=== PATIENT | female | born 1975 | race Native Hawaiian/Other Pacific Islander ===

== ENCOUNTER 2017-01-10 18:56 | Emergency (ER) | payer OTHER ==
[~2017-01-10] VITALS: Ht 175.3 cm; Wt 86.2 kg
[2017-01-10 20:28] LABS: PLATELET COUNT 226 K/uL (152-353)
== END 2017-01-10 21:27 | disposition home or self-care (01) ==
LOC: ED 18:56
DX: R51 Headache (principal); G93.2 Benign intracranial hypertension
CPT/HCPCS: 36415; 85027; 96372; 99283; J1885

== ENCOUNTER 2017-02-03 18:50 | Emergency (ER) | payer OTHER ==
[~2017-02-03] VITALS: Ht 175.3 cm; Wt 88.5 kg
== END 2017-02-03 20:30 | disposition home or self-care (01) ==
LOC: ED 18:50
DX: G44.1 Vascular headache, not elsewhere classified (principal)
CPT/HCPCS: 96372; 99283; J1885

== ENCOUNTER 2017-03-15 11:27 | Emergency (ER) | payer OTHER ==
[~2017-03-15] VITALS: Ht 175.3 cm; Wt 83.9 kg
[2017-03-15 12:21] LABS: PLATELET COUNT 268 K/uL (152-353)
[2017-03-15 12:54] LABS: POTASSIUM 3.5 mmol/L (3.6-5.2); SODIUM 135 mmol/L (136-145)
== END 2017-03-15 13:45 | disposition home or self-care (01) ==
LOC: ED 11:27
PROVIDERS: Specialist
DX: R51 Headache (principal)
CPT/HCPCS: 36415; 80053; 83735; 84100; 84443; 85027; 99283

== ENCOUNTER 2017-06-12 17:13 | Outpatient (CLI) | payer OTHER | END 2017-06-12 17:18 | disposition short-term general hospital (02) | LOC: AMB 17:13 | DX: M54.2 Cervicalgia (principal); M54.89 Other dorsalgia; R51 Headache; M25.512 Pain in left shoulder; M79.602 Pain in left arm; M79.605 Pain in left leg; V49.88XA Car occupant (driver) (passenger) injured in other specified transport accidents, initial encounter; Y92.488 Other paved roadways as the place of occurrence of the external cause | CPT/HCPCS: A0425; A0427 ==

== ENCOUNTER 2017-06-12 17:29 | Emergency (ER) | payer OTHER ==
[~2017-06-12] VITALS: Ht 175.3 cm; Wt 90.7 kg
== END 2017-06-12 22:33 | disposition home or self-care (01) ==
LOC: ED 17:29
DX: S50.12XA Contusion of left forearm, initial encounter (principal); S00.83XA Contusion of other part of head, initial encounter; S80.12XA Contusion of left lower leg, initial encounter; S90.01XA Contusion of right ankle, initial encounter; S30.0XXA Contusion of lower back and pelvis, initial encounter; S40.012A Contusion of left shoulder, initial encounter; V43.52XA Car driver injured in collision with other type car in traffic accident, initial encounter; Y92.89 Other specified places as the place of occurrence of the external cause
CPT/HCPCS: 51702; 99284

== ENCOUNTER 2017-08-07 08:13 | Outpatient (CLI) | payer OTHER | END 2017-08-07 09:45 | disposition home or self-care (01) | LOC: MRI 08:13 | DX: M54.16 Radiculopathy, lumbar region (principal); S99.821D Other specified injuries of right foot, subsequent encounter ==